=== PATIENT | male | born 1995 | race Caucasian/White ===

== ENCOUNTER 2023-09-02 08:12 | Emergency (ER) | payer SELFPAY ==
[2023-09-02 08:15] VITALS: BP 123/65; PULSE 82; RESP 17; TEMP 36.4; O2SAT 98; BMI 22.0
--- NOTE | 2023-09-02 08:20 | ECG_ITS ---
Test Reason : syncope Blood Pressure : / mmHG Vent. Rate : 085 BPM Atrial Rate : 085 BPM P-R Int : 136 ms QRS Dur : 094 ms QT Int : 378 ms P-R-T Axes : 051 073 037 degrees QTc Int : 449 ms Normal sinus rhythm Normal ECG No previous ECGs available Referred By: Surjit Funk Electronically Signed By:CLARE LAMA MD
--- NOTE | 2023-09-02 08:28 | ED_ITS ---
HPI - Syncope General Chief Complaint: Syncope Stated Complaint: Syncope Time Seen by Provider: 09/02/23 08:17 Source: patient and other (Respiratory therapist, [place]) Mode of arrival: wheelchair Limitations: no limitations History of Present Illness HPI narrative: 27-year-old male with no significant past medical history who presents emergency department for evaluation a syncopal episode while he was getting his blood drawn for work related medical clearance. 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 Patient states that in the past, 50% of the time, he has had syncopal episodes when he had his blood drawn. He states that he did not have much to eat today and only had some water to drink prior to coming to his physical. Patient states that he was sitting getting his blood drawn. He felt lightheaded, dizzy, diaphoretic. Patient apparently then passed out. Patient may have had [id number] syncopal episodes. A rapid medical response was called and the respiratory therapist that responded states the patient was very pale, diaphoretic, he had some slight tremors. The patient was then put on a stretcher and then eventually brought to emergency department by wheelchair. In the emergency department he has no complaints. He denied being ill in any way prior to his syncopal episode. He denied any injury from the syncopal episode. Review of Systems Review of Systems: Yes all other systems are reviewed and are negative [facility] Past Medical History [facility] Narrative: Past medical history: Vasovagal syncope during phlebotomy in the past. Social history: He denies tobacco, drug and alcohol use. Physical Exam Vital Signs: Vital Signs: Last Vital Signs Temp 97.6 F 09/02/23 08:15 Pulse 82 09/02/23 08:15 Resp 17 09/02/23 08:15 BP 123/65 09/02/23 08:15 Pulse Ox 98 09/02/23 08:15 O2 Del Method Room Air 09/02/23 08:15 BMI result Body Mass Index 22.0 Vital signs were normal Exam: General: Awake, alert in no distress Head: Normocephalic, atraumatic EENT: PERRL, Lids normal, sclera normal, conjunctiva normal, nose normal , ears normal, throat without erythema or exudates Neck: Supple, no adenopathy, no trachea midline or C-spine tenderness Lung: breath sounds symmetric, no wheezing, rales or rhonchi Chest: symmetric movement, nontender Heart: regular rate and rhythm, normal S1, S2 no murmurs or rubs Abdomen: soft, non-tender, nondistended, normal bowel sounds Back: no vertebral tenderness, no CVAT Extremities: no deformities, moves all extremities symmetrically Neuro: Awake, alert, oriented, normal speech, cranial nerves intact, moves all extremities symmetrically Psych: Pleasant, cooperative Medical Decision Making Medical Decision Making MDM Narrative: 27-year-old male with no significant past medical history who presents emergency department for evaluation of syncopal episode that occurred while he was getting his blood drawn for pre-employment physical. Patient had prodrome symptoms of lightheadedness, dizziness, diaphoresis. Patient had to syncopal episodes reported by the respiratory therapist, patient did not have any tonic clonic seizure activities but did have some myoclonic tremors consistent with a va sovagal syncope. Patient is awake and alert and has no complaints at this time. Patient's examination was unremarkable. Evaluation: EKG My independent interpretation the patient's EKG done here in the emergency department is as follows: Normal sinus rhythm with a rate of 85, normal IA interval, QRS duration QTC interval, no ST segment elevation, no ST segment depression, no T-wave abnormalities, no PACs, no PVCs-this is a normal EKG. I did discuss is vagal syncope with the patient, I do not think the patient needs any further testing here in the emergency depart Discharge Plan Discharge Clinical Impression: Vasovagal syncope Patient Disposition: Home, Self-Care Instructions: Syncope (ED) Additional Instructions: Your EKG was normal. Your physical exam was normal. You had vasovagal syncope(you fainted) secondary to the phlebotomy procedure. This is very common and is normal. In the future, when you get your blood drawn, you should tell the [facility] officer that you pass out and you should get your blood drawn lying down on the stretcher. After you get your blood drawn you should lie on the stretcher for 15 minutes, drink some juice and some crackers prior to trying to stand up. YOU DID NOT HAVE A SEIZURE You are clear to return to the occupational health clinic for further pre- employment evaluation.
[2023-09-02 09:45] LABS: Glucose, Whole Blood 121 mg/dL (60-115)
== END 2023-09-02 09:19 | disposition home or self-care (01) ==
PROVIDERS: Emergency Provider Emergency Medicine Emergency Medical Services
DX: R55 Syncope and collapse (principal)
CPT/HCPCS: 82947; 93005; 99283

== ENCOUNTER → 2023-09-02 08:20 | Outpatient (BNV) | payer SELFPAY | PROVIDERS: Emergency Provider Emergency Medicine Emergency Medical Services; Visit Provider Internal Medicine Cardiovascular Disease | DX: R55 Syncope and collapse (principal) | CPT/HCPCS: 93010 ==